=== PATIENT | male | born 1985 | race African-American/Black ===

== ENCOUNTER 2018-04-23 02:22 | Emergency (ER) | payer SELFPAY ==
[2018-04-23] MEDS ORDERED: Ketorolac Tromethamine 30 MG/ML VIAL ONE (02:42)
== END 2018-04-23 03:22 | disposition home or self-care (01) ==
LOC: ERS 02:22
DX: K08.89 Other specified disorders of teeth and supporting structures (principal); F17.210 Nicotine dependence, cigarettes, uncomplicated; Z79.891 Long term (current) use of opiate analgesic
CPT/HCPCS: 96372; J1885

== ENCOUNTER 2018-06-17 23:16 | Emergency (ER) | payer SELFPAY ==
[2018-06-17] MEDS ORDERED: Ketorolac Tromethamine 30 MG/ML VIAL ONE (23:35)
== END 2018-06-17 23:59 | disposition home or self-care (01) ==
LOC: ERS 23:16
DX: K02.9 Dental caries, unspecified (principal); F17.210 Nicotine dependence, cigarettes, uncomplicated
CPT/HCPCS: 96372; J1885

== ENCOUNTER 2019-04-18 19:02 | Emergency (ER) | payer SELFPAY | END 2019-04-18 20:02 | disposition home or self-care (01) | LOC: ERS 19:02 | DX: J11.1 Influenza due to unidentified influenza virus with other respiratory manifestations (principal); F17.210 Nicotine dependence, cigarettes, uncomplicated | CPT/HCPCS: 99283 ==

== ENCOUNTER 2019-10-06 06:29 | Emergency (ER) | payer SELFPAY ==
[2019-10-06] MEDS ORDERED: Ketorolac Tromethamine 30 MG/ML VIAL ONE ×3 (08:12→08:14)
--- NOTE | 2019-10-06 10:22 | RAD ---
RIGHT FEMUR 2 VIEWS: HISTORY: Right thigh pain. FINDINGS/IMPRESSION: The right femur is intact. POS: [id number]
== END 2019-10-06 08:35 | disposition home or self-care (01) ==
LOC: ERS 06:29
DX: S76.311A Strain of muscle, fascia and tendon of the posterior muscle group at thigh level, right thigh, initial encounter (principal); I10 Essential (primary) hypertension; X50.1XXA Overexertion from prolonged static or awkward postures, initial encounter
CPT/HCPCS: 96372; J1885

== ENCOUNTER 2019-11-30 23:16 | Emergency (ER) | payer OTHER, SELFPAY ==
[2019-11-30] MEDS ORDERED: Acetaminophen 500 MG TAB ONE (23:26)
[2019-12-01 14:31] LABS: SARS-CoV-2 MS2 Positive; SARS-CoV-2 N Gene Negative; SARS-CoV-2 S Gene Negative; SARS-CoV-2 orf1ab Negative
== END 2019-11-30 23:55 | disposition home or self-care (01) ==
LOC: ERS 23:16
DX: R05 Cough (principal); R50.9 Fever, unspecified; R52 Pain, unspecified; R19.7 Diarrhea, unspecified; R53.83 Other fatigue; R43.9 Unspecified disturbances of smell and taste; Z20.828 Contact with and (suspected) exposure to other viral communicable diseases
CPT/HCPCS: 87635; 99283; U0003

== ENCOUNTER 2020-11-14 23:08 | Emergency (ER) | payer SELFPAY | END 2020-11-15 01:50 | disposition left against medical advice (07) | LOC: ERS 23:08 | DX: Z53.21 Procedure and treatment not carried out due to patient leaving prior to being seen by health care provider (principal) ==

== ENCOUNTER 2020-11-15 21:03 | Emergency (ER) | payer SELFPAY | END 2020-11-15 21:50 | disposition home or self-care (01) | LOC: ERS 21:03 | DX: L03.116 Cellulitis of left lower limb (principal); E11.9 Type 2 diabetes mellitus without complications | CPT/HCPCS: 99282 ==

== ENCOUNTER 2021-06-17 17:00 | Emergency (ER) | payer SELFPAY ==
[2021-06-17] MEDS ORDERED: Acetaminophen 500 MG TAB ONE (17:07)
[2021-06-18 12:33] LABS: SARS-CoV-2 PCR by NAA Not Detected (NotDetected)
== END 2021-06-17 18:45 | disposition home or self-care (01) ==
LOC: ERS 17:00
DX: B34.9 Viral infection, unspecified (principal); Z20.822 Contact with and (suspected) exposure to COVID-19
CPT/HCPCS: 87804; 99284; U0003; U0005

== ENCOUNTER 2022-07-11 09:21 | Emergency (ER) | payer BC, SELFPAY ==
[2022-07-11] MEDS ORDERED: Proparacaine 0.5% Opth 15 ML BOT ONE (12:06)
[2022-07-11] MEDS ORDERED: Fluorescein Opthalmic Strip ONE (12:07)
== END 2022-07-11 12:46 | disposition home or self-care (01) ==
LOC: ERS 09:21
DX: H20.9 Unspecified iridocyclitis (principal)
CPT/HCPCS: 99283

== ENCOUNTER 2023-03-02 05:00 | Emergency (ER) | payer SELFPAY | END 2023-03-02 05:28 | disposition home or self-care (01) | LOC: ERS 05:00 | DX: K04.7 Periapical abscess without sinus (principal) | CPT/HCPCS: 99282 ==